=== PATIENT | male | born 1960 | race Caucasian/White ===

== ENCOUNTER 2017-06-01 07:00 | Emergency (ER) | payer OTHER ==
[~2017-06-01] VITALS: Ht 180.3 cm; Wt 95.5 kg
[2017-06-01 07:06] VITALS: Ht 180.3 cm; Wt 95.5 kg
[2017-06-01] MEDS ORDERED: LORAZEPAM 1 MG TAB PO ONE (07:30)
[2017-06-01 09:00] VITALS: BP 127/87; PULSE 74; RESP 18; TEMP 98.9
[2017-06-01] MEDS ORDERED: ALPR0.5T PO (09:56)
--- NOTE | 2017-06-01 09:59 | ERD ---
ER Documentation Chief Complaint Date/Time DATE: 06/01/17 TIME: 09:58 Chief Complaint BROUGHT IN VIA EMS WITH INTIAL C/O HTN AND ANXIOUS ON ASSESSMENT HPI This is a 56-year-old male who says his blood pressure spiked this morning but did not check his blood pressure. He says he just knows it is high but does not have any symptoms associated with hypertension such as headache blurry vision any focal neurological complaints no chest pain shortness of breath general weakness blurry vision. Patient says his hands and feet are going numb. The patient is actively hyperventilating in the room. EMS reports the patient was very anxious on arrival has been hyperventilating the entire time in the ambulance. ROS All systems reviewed and are negative except as per history of present illness. Medications Home Meds Active Scripts Alprazolam* (Xanax*) 0.5 Mg Tab, 0.5 MG PO Q8H Y for ANXIETY, #14 TAB Prov:JERI SOLITARIO DO 06/01/17 PMhx/Soc Medical and Surgical Hx: pt denies Surgical Hx Hx Cardiac Disorders: Yes (HTN) Hx Miscellaneous Medical Probl: Yes (ARTHRITIS ) Hx Alcohol Use: Yes Hx Substance Use: No Hx Tobacco Use: Yes Smoking Status: Current every day smoker FmHx Family History: No coronary disease Physical Exam Vitals Vital Signs Date Time Temp Pulse Resp B/P Pulse Ox O2 Delivery O2 Flow Rate FiO2 06/01/17 09:00 98.9 74 18 127/87 99 06/01/17 07:06 98.9 85 18 145/98 99 Physical Exam Const: Well-developed, well-nourished Head: Atraumatic, normocephalic Eyes: Normal Conjunctiva, PERRLA, EOMI, normal sclera, no nystagmus ENT: Normal External Ears, Nose and Mouth, moist mucus membranes. Neck: Full range of motion. No meningismus, no lymphadenopathy. Resp: Clear to auscultation bilaterally, no wheezing, rhonchi, rales Cardio: Regular rate and rhythm, no murmurs, S1 S2 present Abd: Soft, non tender x 4, non distended. Normal bowel sounds, no guarding or rebound, no pulsitile abdominal masses or bruits Skin: No petechiae or rashes, no ecchymosis , no maculopapular rash Back: No midline or flank tenderness Ext: No cyanosis, or edema, FROM x 4, normal inspection, neurovascularly intact x 4 Neur: Awake and alert, STR 5/5 x 4, sensation intact x 4, no focal findings, cerebellum intact Psych: Hyperventilating, anxious Results 24 hrs Current Medications Medications (Trade) Dose Ordered Sig/Tayo Route PRN Reason Start Time Stop Time Status Last Admin Dose Admin Lorazepam (Ativan) 1 mg ONCE ONCE PO 06/01/17 07:30 06/01/17 07:31 DC 06/01/17 07:30 Procedures/MDM Patient was given Ativan p.o. After some observation time the patient's MiraLAX and feels better Clearly an anxiety reaction Departure Diagnosis: Primary Impression: Anxiety Condition: Stable Patient Instructions: Anxiety Reaction JERI SOLITARIO DO Jun 01, 2017 09:59
== END 2017-06-01 10:28 | disposition home or self-care (01) ==
LOC: E/R 07:00
DX: F41.9 Anxiety disorder, unspecified (principal); I10 Essential (primary) hypertension; F17.210 Nicotine dependence, cigarettes, uncomplicated
CPT/HCPCS: 99283